=== PATIENT | male | born 1985 | race Caucasian/White ===

== ENCOUNTER 2020-12-25 15:58 | Emergency (ER) | payer MEDICAID, OTHER, SELFPAY ==
[~2020-12-25] VITALS: Ht 177.8 cm; Wt 70.0 kg
[2020-12-25] MEDS ORDERED: ONDANSETRON ODT 4 MG ONE (16:27)
[2020-12-25] MEDS ORDERED: KETOROLAC 30 MG/1 ML ONE (16:27)
[2020-12-25] MEDS ORDERED: KETOROLAC 30 MG/1 ML IM ONE (16:30)
[2020-12-25] MEDS ORDERED: ONDANSETRON ODT 4 MG PO ONE (16:30)
[2020-12-25 16:45] LABS: ALBUMIN 4.3 g/dL (3.4-5.0); ANION GAP 8 mmol/L (5-15); CALCIUM 8.8 mg/dL (8.5-10.1); CHLORIDE 101 mmol/L (98-107); CREATININE 1.11 mg/dL (0.7-1.3)
[2020-12-25 16:50] LABS: BASOPHILS % (AUTO) 0 % (0-1); EOSINOPHILS % (AUTO) 0 % (1-7); LYMPHOCYTES % (AUTO) 8 % (22-44); MEAN CORPUSCULAR HEMOGLOBIN 30.9 pg (27.5-34.5); MEAN CORPUSCULAR HGB CONC 34.6 g/dL (33.2-36.2); MEAN PLATELET VOLUME 7.9 fL (7.4-10.4); MONOCYTES % (AUTO) 6 % (2-9); NEUTROPHILS % (AUTO) 86 % (42-75); PLATELET COUNT 292 x10^3/uL (130-400); RED BLOOD COUNT 4.85 x10^6/uL (4.38-5.82); RED CELL DISTRIBUTION WIDTH 12.8 % (9.4-14.8)
[2020-12-25 17:18] LABS: MD SCAN
[2020-12-25 17:35] LABS: MICROSCOPIC AUTO
[2020-12-25 18:03] VITALS: BP 125/69
--- NOTE | 2020-12-25 18:09 | NUR ---
Patient given discharge instructions and Rx, they have confirmed that they understand the instructions. Patient ambulatory with steady gait.
== END 2020-12-25 18:11 | disposition home or self-care (01) ==
LOC: ED 18:05
DX: N13.2 Hydronephrosis with renal and ureteral calculous obstruction (principal); R10.31 Right lower quadrant pain; R11.0 Nausea; M54.5 Low back pain; Z87.891 Personal history of nicotine dependence
CPT/HCPCS: 36415; 74176; 80048; 81001; 82040; 85025; 96372; 99284; J1885; Q0162